=== PATIENT | male | born 1975 | race Caucasian/White ===

== ENCOUNTER 2023-04-25 20:42 | Inpatient (IN) | payer BC, SELFPAY ==
[2023-04-25 20:49] VITALS: BP 159/100; PULSE 87; RESP 16; TEMP 36.6; O2SAT 98; BMI 32.8
--- NOTE | 2023-04-25 20:56 | ED.GENADULT ---
HPI - General Adult General Chief complaint: Unspecified Complaint, Adult Stated complaint: Potassium level low Time Seen by Provider: 04/25/23 20:52 History of Present Illness HPI narrative: Pt had annual physical today, found to have K 2.7, asymptomatic. 48-year-old man presenting to the emergency department with concern of low potassium. Was contacted following blood draw today at his annual physical notified of a potassium of 2.7. Creatinine also is 1.2 He feels fine otherwise. Has had hypokalemia in the past. Also is treated for hypertension and GERD and depression/anxiety. Not able to locate any magnesium level. I do review labs that he brings in with him. He is scrolling through his [facility] record. This hypokalemia is certainly not a new problem and up until a few? months ago was on 20 mEq b.i.d. which has been increased to 40 mEq b.i.d. of potassium. This increased may actually have been in June of this year with potassium of 2.8 and a creatinine of 1. Back further in April of 2022 potassium level was 3.4. Not clear that there any losses. He does indicate that has numerous bowel movements during a day. Related Data Home Medications Medication Instructions Recorded Confirmed amlodipine 10 mg tablet 10 mg PO DAILY 04/25/23 04/25/23 atorvastatin 20 mg tablet 20 mg PO DAILY 04/25/23 04/25/23 lisinopril 20 tab PO 04/25/23 mg-hydrochlorothiazide 25 mg tablet omeprazole 40 mg capsule,delayed 40 mg PO DAILY 04/25/23 04/25/23 release potassium chloride 20 mEq 40 meq PO BID 04/25/23 04/25/23 tablet,extended release(part/cryst) venlafaxine 150 mg 150 mg PO DAILY 04/25/23 04/25/23 capsule,extended release 24 hr Allergies Allergy/AdvReac Type Severity Reaction Status Date / Time No Known Drug Allergies Allergy Verified 04/25/23 20:52 Review of Systems Status of ROS: Reports: 6 or more systems reviewed and unremarkable except as noted in History and below [facility] Social History Smoking Status: Former smoker How often do you have a drink containing alcohol: 4 or more times a week How many standard drinks containing alcohol do you have on a typical day: 1 or 2 AUDIT-C Alcohol total score: 4 Non-prescribed substance use: other Non-prescribed substance use details: thc gummies Exam Narrative: Exam Narrative: Pleasant. NAD. Blood pressure elevated a little bit. Long hair. Carefully groomed. Breathing easily. Lungs appear to be clear. Heart in regular rate and rhythm. Abdomen is overweight soft. Extremities are well perfused without edema. Moving extremities without difficulty, fluidly. Const: Vital Signs, click to edit/add: Vital Signs - 24 hr 04/25/23 20:49 Temperature 97.8 F Pulse Rate [Left P ulse Oximeter] 87 Respiratory Rate 16 Blood Pressure [Ri ght Upper Arm] 159/100 H Pulse Oximetry 98 Documenting provider has reviewed patient's vital signs: yes Course Vital Signs Vital signs: Initial Vital Signs Temperature 97.8 F 04/25/23 20:49 Temperature Source Temporal Artery Scan 04/25/23 20:49 Pulse Rate 87 04/25/23 20:49 Respiratory Rate 16 04/25/23 20:49 Blood Pressure 159/100 H 04/25/23 20:49 Blood Pressure Mean 119 H 04/25/23 20:49 Blood Pressure Position Sitting 04/25/23 20:49 Pulse Oximetry 98 04/25/23 20:49 Vital Signs Temperature 97.8 F 04/25/23 20:49 Pulse Rate 87 04/25/23 20:49 Respiratory Rate 16 04/25/23 20:49 Blood Pressure 159/100 H 04/25/23 20:49 Pulse Oximetry 98 04/25/23 20:49 Temperature 97.8 F 04/25/23 20:49 Pulse Rate 87 04/25/23 20:49 Respiratory Rate 16 04/25/23 20:49 Blood Pressure 159/100 H 04/25/23 20:49 Pulse Oximetry 98 04/25/23 20:49 Medical Decision Making MDM Narrative Medical decision making narrative: Will recheck labs. This might be medication related. Further is not on a potassium-sparing diuretic. Opted to check an EKG though looking for any changes to direct further treatment. EKG is noted below the so some flattening of the T-waves; I do not have prior EKG for comparison. But this prompts placement of IV. Will be giving IV potassium as well as oral 50 mEq. I would suspect that magnesium is not going to be elevated and probably lower low normal and so will begin supplementation of that as well IV slowly in the interest of time. Also receiving 500 mL of normal saline IV. Labs returned with a potassium of 2.2 actually lower than measured earlier today and magnesium 1.6. I have contacted our hospitalist to consider options including potential outpatient plan. At this time recommendation is for admission for continued potassium replacement and further evaluation. Will complete basic metabolic panel as well. Lab Data Lab results reviewed: Yes I reviewed the patient's lab results Labs: Lab Results 04/25/23 04/25/23 Range/Units 21:23 22:09 Potassium 2.2 L* (3.6-5.1) mmol/L Magnesium 1.6 (1.5-2.6) mg/dL Lab Acknowledgement Test Added ECG Data Attestation: I personally reviewed and interpreted this ECG as follows: (Normal sinus rhythm at rate of 74. Rather flattened T-waves.) Discharge Plan Discharge Clinical Impression: Acute electrocardiogram changes, Hypokalemia Patient Disposition: Admitted As Observation Condition: Stable
[2023-04-25] MEDS: POTASSIUM CHLORIDE 10 MEQ/100 ML PIGGYBACK 100 MEQ IVPB (21:29)
[2023-04-25] MEDS: 0.9 % SODIUM CHLORIDE 500 ML 500 ML IV (21:29)
[2023-04-25] MEDS: POTASSIUM BICARB 25 MEQ EFFERVESCENT TAB 50 MEQ PO (21:48)
[2023-04-25 21:56] LABS: Magnesium* 1.6 mg/dL (1.5-2.6)
[2023-04-25 22:07] LABS: Potassium* 2.2 mmol/L (3.6-5.1)
[2023-04-25 22:21] LABS: Chloride* 94 mmol/L (96-114); Sodium* 138 mmol/L (135-149)
[2023-04-25 22:24] LABS: Anion Gap 16 mEq/L (7-15); Blood Urea Nitrogen* 16 mg/dL (5-24); Carbon Dioxide* 28 mmol/L (20-32); Est. Creatinine Clearance* 98.08; Estimated Glomerular Filt Rate 92 ml/min
[2023-04-25 22:25] VITALS: BP 160/102; PULSE 72; RESP 16; O2SAT 96
[2023-04-25 22:25] LABS: Calcium* 9.2 mg/dL (8.4-10.6); Glucose* 105 mg/dL (60-115)
[2023-04-25 22:40] LABS: Appearance Urine Clear (Clear); Bilirubin Urine Negative (Negative); Blood Urine Negative (Negative); Color Urine Yellow (Yellow); Glucose Urine Negative (Negative); Ketones Urine Negative (Negative); Leukocyte Esterase Urine Negative (Negative); Nitrite Urine Negative (Negative); Protein Urine 1+ (Negative); Specific Gravity Urine 1.025 (1.000-1.030); Urobilinogen Urine 0.2 (0.2-1.0); pH Urine 6.5 (5.0-8.5)
[2023-04-25 23:00] VITALS: PULSE 98; RESP 18
[2023-04-25 23:01] LABS: RBC Urine 0-2 (0-2); Squamous Epithelial Cell Urine Few (None-Few); WBC Urine 0-2 (0-5)
--- NOTE | 2023-04-25 23:05 | P.IMHP_ITS ---
Hospitalist- H&P: HPI History of Present Illness Date Seen: 04/25/23 Chief complaint: Potassium level low Narrative: Manolo Perkins is a 48 year old male who presented to the emergency department at the behest of his PCP's office, after having a potassium of 2.7 on routine lab draw today. He was in for his annual physical and otherwise feeling fine. No recent travel, no recent illness, no GI distress, no issues. He has not had any chest pain or palpitations. He has not had any muscle twitching or cramping. ER Course and Findings: - potassium 2.2, given IV and oral replacement - magnesium 1.6, given IV replacement - mild flattening of T-waves on EKG Matthew has a history of hypokalemia on chart review (2.8-3.4, noted since 2019 in [facility]), has been on supplemental potassium for years. He has also been on lisinopril-hydrochlorothiazide for years. Medical history updated below. PCP is Dr. Bright at the [facility]. Review of Systems Status of ROS: Reports: 10 or more systems reviewed and unremarkable except as noted in History and below [facility] Medical History (Updated 04/25/23 @ 23:47 by Xochitl Olguin MD) RONNIE on CPAP ?G47.33 - Obstructive sleep apnea (adult) (pediatric) (ICD-10) Diverticulitis ?K57.92 - Diverticulitis of intestine, part unspecified, without perforation or abscess without bleeding (ICD-10) GERD (gastroesophageal reflux disease) ?K21.9 - Gastro-esophageal reflux disease without esophagitis (ICD-10) Essential hypertension ?I10 - Essential (primary) hypertension (ICD-10) Hyperlipidemia ?E78.5 - Hyperlipidemia, unspecified (ICD-10) Surgical History (Updated 04/25/23 @ 23:25 by Xochitl Olguin MD) Hx of colonoscopy ?Z98.890 - Other specified postprocedural states (ICD-10) H/O wisdom tooth extraction ?K08.409 - Partial loss of teeth, unspecified cause, unspecified class (ICD- 10) Social History Smoking Status: Former smoker How often do you have a drink containing alcohol: 4 or more times a week How many standard drinks containing alcohol do you have on a typical day: 1 or 2 AUDIT-C Alcohol total score: 4 Non-prescribed substance use: other Non-prescribed substance use details: thc gummies Meds Home Medications and Allergies Home Medications Medication Instructions Recorded Confirmed Type amlodipine 10 mg tablet 10 mg PO DAILY 04/25/23 04/25/23 History atorvastatin 20 mg tablet 20 mg PO DAILY 04/25/23 04/25/23 History lisinopril 20 1 tab PO DAILY 04/25/23 04/25/23 History mg-hydrochlorothiazide 25 mg tablet omeprazole 40 mg capsule,delayed 40 mg PO DAILY 04/25/23 04/25/23 History release potassium chloride 20 mEq 40 meq PO BID 04/25/23 04/25/23 History tablet,extended release(part/cryst) venlafaxine 150 mg 150 mg PO DAILY 04/25/23 04/25/23 History capsule,extended release 24 hr Allergies Allergy/AdvReac Type Severity Reaction Status Date / Time No Known Drug Allergies Allergy Verified 04/25/23 20:52 Exam Narrative: Exam Narrative: GEN: Alert and oriented, nontoxic in appearance and answering questions appropriately HEENT: EOMIs bilaterally, no scleral icterus CV: RRR, No concerning murmurs R: LCTA bilaterally without concerning wheezing, air movement adequate Ext: wwp, no concerning edema Skin: No concerning skin lesions or rashes on exposed skin Neuro: No focal deficits, no resting tremor Psych: Appropriate Const: Vital Signs, click to edit/add: Vital Signs - 24 hr 04/25/23 20:49 04/25/23 22:25 Temperature 97.8 F Pulse Rate [Left P ulse Oximeter] 87 72 Respiratory Rate 16 16 Blood Pressure [Ri ght Upper Arm] 159/100 H 160/102 H Pulse Oximetry 98 96 Oxygen Delivery Me thod Room Air Hospitalist - H&P: Result Labs Labs: BMP 04/25/23 21:23 Sodium 138 Potassium 2.2 L* Chloride 94 L Carbon Dioxide 28 BUN 16 Creatinine 1.0 Glucose 105 Calcium 9.2 Urine 04/25/23 Range/Units 22:27 Urine Color Yellow (Yellow) Urine Appearance Clear (Clear) Urine pH 6.5 (5.0-8.5) Ur Specific [place] 1.025 (1.000-1.030) Urine Protein 1+ A (Negative) Urine Glucose (UA) Negative (Negative) Assessment and Plan Assessment and plan (1) Hypokalemia: Problem comment: - given K of 2.2 on 04/25, will admit for telemetry monitoring and replacement - stop hydrochlorothiazide - recheck potassium in the morning - anticipate discharge home tomorrow with close PCP follow-up - consider outpatient workup for primary aldosteronism if hypokalemia persists after medication changes Status: Acute (2) Acute electrocardiogram changes: Problem comment: - mild T-wave flattening - asymptomatic, follow on telemetry - anticipate resolution with potassium replacement Status: Acute (3) Essential hypertension: Problem comment: - continue home dose of Amlodipine - stop HCTZ 04/25, increase Lisinopril from 20--->40mg Status: Acute Plan - per above - SCDs and ambulation for prophylaxis - Full code - updated at bedside, questions answered
[2023-04-25 23:22] VITALS: BP 161/101; PULSE 77; RESP 18; TEMP 36.6; O2SAT 98; BMI 33.9
[2023-04-26] VITALS (7 sets, daily range): BP systolic 137–160; BP diastolic 85–109; PULSE 74–93; RESP 16–18; TEMP 36.3–36.8; O2SAT 94–98
[2023-04-26] MEDS: 0.9 % SODIUM CHLORIDE 250 ml IV (00:28)
[2023-04-26] MEDS: POTASSIUM CHLORIDE 10 MEQ/100 ML PIGGYBACK 100 MEQ IVPB ×10 (00:29→20:37)
[2023-04-26] MEDS: POTASSIUM BICARB 25 MEQ EFFERVESCENT TAB 50 MEQ PO ×3 (00:32→20:38)
--- NOTE | 2023-04-26 04:45 | PC.NURSE ---
Patient arrived at 2300 from ER accompanied by his . Pleasant, alert and oriented. Independent with cares, ambulation and toileting. BP?s elevated. Denied any symptoms or pain.?
[2023-04-26 06:56] LABS: Chloride* 91 mmol/L (96-114); Sodium* 139 mmol/L (135-149)
[2023-04-26 06:59] LABS: Anion Gap 15 mEq/L (7-15); Blood Urea Nitrogen* 13 mg/dL (5-24); Carbon Dioxide* 33 mmol/L (20-32); Creatinine* 0.9 mg/dL (0.5-1.5); Est. Creatinine Clearance* 108.98; Estimated Glomerular Filt Rate 105 ml/min
[2023-04-26 07:00] LABS: Calcium* 8.7 mg/dL (8.4-10.6); Glucose* 104 mg/dL (60-115); Magnesium* 1.8 mg/dL (1.5-2.6)
[2023-04-26 07:10] LABS: Potassium* 2.4 mmol/L (3.6-5.1)
[2023-04-26 07:35] LABS: Phosphorus* 3.7 mg/dL (2.5-4.5)
[2023-04-26] MEDS: lisinopriL 20 MG TABLET 40 MG PO (08:52)
[2023-04-26] MEDS: VENLAFAXINE ER 75 MG CAPSULE 150 MG PO (08:52)
[2023-04-26] MEDS: AMLODIPINE 10 MG TABLET PO (08:52)
[2023-04-26] MEDS: OMEPRAZOLE 20 MG CAPSULE DR 40 MG PO (08:52)
[2023-04-26] MEDS: SODIUM CHLORIDE 0.9 % (FLUSH) 10 ML SYRINGE 5 ML IVF ×2 (08:54→20:38)
--- NOTE | 2023-04-26 10:09 | NUTR.NU ---
RDN with MD consult for hypokalemia. Patient admitted to hospital with low potassium level. RDN visited with patient and (Carmen, also designated caregiver) whom agreed to diet education. Diet education provided on foods with high-potassium content. RDN reviewed foods to include more in diet. Patient reports he does not include fruits and vegetables in diet daily. He claims he is a meat-atarian. Patient does like to eat potatoes, bananas, and leafy greens. He plans on including these in his diet more often, RDN encouraged him to do so daily. RDN's contact information was provided and patient/ was encouraged to call with questions.
[2023-04-26 14:01] LABS: Potassium* 2.7 mmol/L (3.6-5.1)
--- NOTE | 2023-04-26 14:11 | PC.NURSE ---
Patient A&O x4 and cooperative with cares. Independent in his room. AM K+ critical at 2.4 > IV K+ infusing throughout the day in 20g left AC 10 mEq x6 doses > 1400 K+ recheck remains critical at 2.7. VSS and afebrile. TELE reads NSR rate 70s-90s. Continues to be asymptomatic of hypokalemia and reports no pain. present at bedside this afternoon & brought food in for him. Reports having a BM this morning no difficulties.
--- NOTE | 2023-04-26 14:21 | P.IMPN_ITS ---
Progress Note: A&P Assessment and plan (1) Hypokalemia: Problem details: - given K of 2.2 on 04/25, will admit for telemetry monitoring and replacement - stop hydrochlorothiazide - 04/26: recheck of potassium is 2.4 in the morning, then 2.7 after 4 bumps 10 mEq IV. Will change supplement to 50 mEq orally t.i.d., recheck potassium at 5:00 p.m. and 2000 pm - consider outpatient workup for primary aldosteronism if hypokalemia persists after medication changes - urine potassium and renin ordered Status: Acute (2) Essential hypertension: Problem details: - continue home dose of Amlodipine - stop HCTZ 04/25, increase Lisinopril from 20--->40mg Status: Acute (3) Acute electrocardiogram changes: Problem details: - mild T-wave flattening - asymptomatic, follow on telemetry - anticipate resolution with potassium replacement Status: Acute Time Spent With Patient Total time spent: Total time spent caring for the patient today was 45 minutes. This includes time spent for the visit reviewing the chart, time spent during the visit, time spent after the visit and documentation and planning in coordination of care. Subjective Date Seen: 04/26/23 Interval history: Patient reports feeling pretty good this morning. Tells me he has not been symptomatic at all with his chronic low potassium. Tolerating orals. No recent fevers. No recent nausea vomiting diarrhea. Exam Narrative: Exam Narrative: PHYSICAL EXAM General: Pleasant, conversant, NAD HEENT: Normocephalic, atraumatic, sclera white, EOMI, oral mucosa moist Cardiovascular: RRR, S1S2. No pitting edema Pulmonary: CTA bilaterally without rhonchi, rales, expiratory wheezes. No dyspnea Neurological: Alert, answering questions appropriately, cranial nerves intact, no focal findings Extremities: No gross joint deformity or swelling. AROMI. Neurovascularly intact Skin: Warm, dry. Const: Vital Signs, click to edit/add: Vital Signs - 24 hr 04/25/23 20:49 04/25/23 22:25 04/25/23 23:00 Temperature 97.8 F Pulse Rate Pulse Rate [Left P ulse Oximeter] 87 72 Pulse Rate [Pulse Oximeter] 98 Respiratory Rate 16 16 18 Blood Pressure [Ri ght Arm] Blood Pressure [Ri ght Upper Arm] 159/100 H 160/102 H Pulse Oximetry 98 96 Oxygen Delivery Me thod Room Air 04/25/23 23:22 04/26/23 03:00 04/26/23 07:00 Temperature 97.8 F 97.6 F Pulse Rate 77 Pulse Rate [Left P ulse Oximeter] Pulse Rate [Pulse Oximeter] 77 74 Respiratory Rate 18 18 Blood Pressure [Ri ght Arm] 161/101 H 144/93 H Blood Pressure [Ri ght Upper Arm] Pulse Oximetry 98 96 Oxygen Delivery Me thod Room Air Room Air 04/26/23 07:00 04/26/23 07:00 04/26/23 11:00 Temperature 98 F 98.3 F Pulse Rate Pulse Rate [Left P ulse Oximeter] Pulse Rate [Pulse Oximeter] 93 85 Respiratory Rate 16 16 16 Blood Pressure [Ri ght Arm] 160/109 H 137/99 H Blood Pressure [Ri ght Upper Arm] Pulse Oximetry 95 95 95 Oxygen Delivery Me thod Room Air Room Air Room Air Labs Labs: Laboratory Results - last 24 hr 04/25/23 04/25/23 04/25/23 21:23 22:09 22:27 Sodium 138 Potassium 2.2 L* Chloride 94 L Carbon Dioxide 28 Anion Gap 16 H BUN 16 Creatinine 1.0 Estimated Creat Clear 98.08 Estimated GFR 92 Glucose 105 Calcium 9.2 Phosphorus Magnesium 1.6 Urine Color Yellow Urine Appearance Clear Urine pH 6.5 Ur Specific [place] 1.025 Urine Protein 1+ A Urine Glucose (UA) Negative Urine Ketones Negative Urine Blood Negative Urine Nitrite Negative Urine Bilirubin Negative Urine Urobilinogen 0.2 Ur Leukocyte Esterase Negative Urine RBC 0-2 Urine WBC 0-2 Ur Squamous Epith Cells Few Urine Bacteria None Lab Acknowledgement Test Added 04/26/23 04/26/23 04/26/23 06:03 07:24 13:26 Sodium 139 Potassium 2.4 L* 2.7 L* Chloride 91 L Carbon Dioxide 33 H Anion Gap 15 BUN 13 Creatinine 0.9 Estimated Creat Clear 108.98 Estimated GFR 105 Glucose 104 Calcium 8.7 Phosphorus 3.7 Magnesium 1.8 Urine Color Urine Appearance Urine pH Ur Specific [place] Urine Protein Urine Glucose (UA) Urine Ketones Urine Blood Urine Nitrite Urine Bilirubin Urine Urobilinogen Ur Leukocyte Esterase Urine RBC Urine WBC Ur Squamous Epith Cells Urine Bacteria Lab Acknowledgement Test Added
[2023-04-26 17:26] LABS: Potassium* 2.7 mmol/L (3.6-5.1)
[2023-04-26] MEDS: ATORVASTATIN 10 MG TABLET 20 MG PO (20:38)
[2023-04-26 22:17] LABS: Potassium* 3.3 mmol/L (3.6-5.1)
--- NOTE | 2023-04-26 22:32 | PC.NURSE ---
End of shift [id number]: Alert and oriented x3. Denies any pain, shortness of breath or chest pain. Independent with ambulation and personal cares. Potassium draw results 2.7, new orders for IV potassium 10mEq x3 then redraw lab at 2200. Patient tolerated medications well, denied any pain or burning at IV site. Follow up potassium at 2200 was 3.3, Dr. Olguin aware, no new orders at this time. Patient's brought in CPAP machine, machine checked by Andrea DANIELS. No concerns at this time.
[2023-04-27 04:15] VITALS: BP 145/102; PULSE 84; RESP 16; TEMP 36.7; O2SAT 95
--- NOTE | 2023-04-27 06:49 | PC.NURSE ---
End of shift nursing note, [id number]: Uneventful shift, pt alert and oriented, pleasant and cooperative. Vitals stable, aside from continued HTN, BP 140s/low 100s, pt asymptomatic, denies headache. Pt up ad aga in room, voided couple times during night. CPAP on during sleep. Denies pain. Urine sample collected and brought to lab for ordered urine K+. Pt uses call light appropriately, &has within reach.
[2023-04-27 07:00] VITALS: BP 142/98; PULSE 65; PULSE 75; RESP 16; RESP 18; TEMP 36.8; O2SAT 94
[2023-04-27 09:00] LABS: Chloride* 95 mmol/L (96-114); Sodium* 139 mmol/L (135-149)
[2023-04-27 09:03] LABS: Anion Gap 14 mEq/L (7-15); Blood Urea Nitrogen* 11 mg/dL (5-24); Carbon Dioxide* 30 mmol/L (20-32); Creatinine* 0.9 mg/dL (0.5-1.5); Est. Creatinine Clearance* 108.98; Estimated Glomerular Filt Rate 105 ml/min; Glucose* 103 mg/dL (60-115)
[2023-04-27] MEDS: lisinopriL 20 MG TABLET 40 MG PO (09:37)
[2023-04-27] MEDS: OMEPRAZOLE 20 MG CAPSULE DR 40 MG PO (09:37)
[2023-04-27] MEDS: AMLODIPINE 10 MG TABLET PO (09:37)
[2023-04-27] MEDS: SODIUM CHLORIDE 0.9 % (FLUSH) 10 ML SYRINGE 5 ML IVF (09:38)
[2023-04-27] MEDS: SPIRONOLACTONE 25 MG TABLET PO (09:38)
[2023-04-27] MEDS: POTASSIUM BICARB 25 MEQ EFFERVESCENT TAB 50 MEQ PO (09:38)
[2023-04-27] MEDS: VENLAFAXINE ER 75 MG CAPSULE 150 MG PO (09:39)
[2023-04-27 11:00] VITALS: BP 140/94; PULSE 80; RESP 18; TEMP 36.6; O2SAT 96
--- NOTE | 2023-04-27 11:13 | PM.DS1 ---
DS: Providers Provider Date Seen: 04/27/23 Date of admission: 04/26/23 08:51 Primary care physician: Ramón Mishra Admitting Clinician: Xochitl Olguin MD Consults: 04/25/23 23:38 Consult to Nutrition [CONS] Routine Comment: Reason for consult:: Miscellaneous Comment: hypokalemia Attending Physician on discharge: LUIS ALBERTO Oakley, [facility] Date of Discharge: 04/27/23 DS: Diagnosis Discharge Diagnosis (1) Hypokalemia: Status: Acute Problem details: - given K of 2.2 on 04/25, will admit for telemetry monitoring and replacement - stop hydrochlorothiazide - 04/26: recheck of potassium is 2.4 in the morning, then 2.7 after 4 bumps 10 mEq IV. Will change supplement to 50 mEq orally t.i.d., recheck potassium at 5:00 p.m. and 2000 pm - consider outpatient workup for primary aldosteronism if hypokalemia persists after medication changes - urine potassium and renin ordered - pending at time of discharge. May need to follow-up with PCP for 24 hour urine potassium. - evening of 04/26, potassium improved to 3.3. On day of discharge, potassium 3.0. Increased patient's usual home dose of KCl 20 mEq b.i.d. to t.i.d. to see if this would aid with retain potassium. In addition, stopped hydrochlorothiazide and omeprazole. Started spironolactone as concern for primary aldosteronism. Will need close follow-up with PCP in 3-5 days with repeat potassium level and further workup. (2) Essential hypertension: Status: Acute Problem details: - continue home dose of Amlodipine - stop HCTZ 04/25, increase Lisinopril from 20--->40mg. Discharged on this dose of lisinopril. (3) Acute electrocardiogram changes: Status: Acute Problem details: - mild T-wave flattening - asymptomatic, follow on telemetry - anticipate resolution with potassium replacement (4) GERD (gastroesophageal reflux disease): Status: Acute Problem details: - post marketing studies do show risk of hypokalemia with omeprazole so, while possibly minor, this was stopped on day of discharge. Started on famotidine b.i.d.. Further outpatient management with PCP. DS: Summary Hospital Course Hospital Course: [age] year old male past medical history significant for hypokalemia, hypertension, GERD was admitted to the medical floor for further management acute on chronic hypokalemia. Course of care and details as noted above. Remainder of chronic medical comorbidities were monitored and managed with home medications. Patient will need close follow-up with PCP as he has asymptomatic hypokalemia. Recommended follow-up with repeat potassium level in 3-5 days. Recommend ongoing outpatient workup for primary aldosteronism. A renin test was obtained and is pending on day of discharge. A 24 hour urine potassium test would also be useful. On discharge, the following medication changes have been made: Stop your lisinopril/HCTZ. Instead, you have been given a prescription for lisinopril to be taken once daily. Change your potassium chloride to 20 mg (1 tablet) 3 times daily. Previously prescribed 20 mg twice daily. Continue to take spironolactone every morning. Stop taking omeprazole. Post marketing studies do report hypokalemia which may be under studied. For the time being, it makes sense to stop this potential medication adverse reaction. Instead, start taking famotidine twice daily. Follow-up with your PCP for further medication management of your GERD. Status at Discharge Overall status at discharge: patient is back to baseline Time Spent with Patient Time attestation: Total time spent providing and/or coordinating discharge services: Time spent: Greater than 30 minutes Exam Narrative: Exam Narrative: PHYSICAL EXAM General: Pleasant, conversant, NAD Cardiovascular: RRR Pulmonary: No dyspnea Neurological: Alert, answering questions appropriately, cranial nerves intact, no focal findings Skin: Warm, dry. Const: Vital Signs, click to edit/add: Vital Signs - 24 hr 04/26/23 15:00 04/26/23 15:00 04/26/23 15:00 Temperature 97.4 F L Pulse Rate 87 Pulse Rate [Pulse Oximeter] 83 Respiratory Rate 18 Blood Pressure [Ri ght Arm] 143/85 H Pulse Oximetry 97 97 Oxygen Delivery Me thod Room Air Room Air 04/26/23 19:00 04/26/23 23:00 04/26/23 23:00 Temperature 98.3 F Pulse Rate 77 Pulse Rate [Pulse Oximeter] 86 77 Respiratory Rate 17 16 Blood Pressure [Ri ght Arm] 140/96 H Pulse Oximetry 98 Oxygen Delivery Me thod Room Air 04/26/23 23:00 04/26/23 23:30 04/27/23 04:15 Temperature 98.2 F 98.0 F Pulse Rate Pulse Rate [Pulse Oximeter] 74 84 Respiratory Rate 16 16 16 Blood Pressure [Ri ght Arm] 145/107 H 145/102 H Pulse Oximetry 94 94 95 Oxygen Delivery Me thod Room Air Room Air Room Air 04/27/23 07:00 04/27/23 07:00 04/27/23 07:00 Temperature Pulse Rate 65 Pulse Rate [Pulse Oximeter] 75 Respiratory Rate 16 18 Blood Pressure [Ri ght Arm] Pulse Oximetry 94 Oxygen Delivery Me thod Room Air 04/27/23 07:00 Temperature 98.2 F Pulse Rate Pulse Rate [Pulse Oximeter] 75 Respiratory Rate 18 Blood Pressure [Ri ght Arm] 142/98 H Pulse Oximetry 94 Oxygen Delivery Me thod Room Air DS: Data Data Completed and Pending Pending studies at discharge: Renin Labs on day of discharge: Labs from last 24 hours 04/27/23 04/26/23 04/26/23 08:08 21:59 17:00 Sodium 139 Potassium 3.0 L 3.3 L 2.7 L* Chloride 95 L Carbon Dioxide 30 Anion Gap 14 BUN 11 Creatinine 0.9 Estimated Creat Clear 108.98 Estimated GFR 105 Glucose 103 Calcium 9.0 Renin Baseline 04/26/23 04/26/23 14:23 13:26 Sodium Potassium 2.7 L* Chloride Carbon Dioxide Anion Gap BUN Creatinine Estimated Creat Clear Estimated GFR Glucose Calcium Renin Baseline Pending Discharge Plan Discharge Disposition: Home, Self-Care Date of Admission: 04/26/23 08:51 Attending Provider on Discharge: Jessica Avendaño Primary Care Provider: Provider,Not a Local Condition: Stable Anticipated Discharge Date/Time: 04/27/23 11:01 Discharge Medications: New lisinopril 20 mg Tablet 40 mg PO DAILY Qty: 30 0RF spironolactone 25 mg Tablet 25 mg PO DAILY Qty: 30 0RF famotidine 20 mg tablet 20 mg PO BID Qty: 60 2RF potassium chloride 20 mEq tablet extended release 20 meq PO TID Qty: 90 0RF Continued atorvastatin 20 mg tablet 20 mg PO DAILY amlodipine 10 mg tablet 10 mg PO DAILY venlafaxine 150 mg capsule,extended release 24hr 150 mg PO DAILY multivitamin [Daily Multi-Vitamin] Tablet 1 tab PO DAILY Discontinued omeprazole 40 mg capsule,delayed release(DR/EC) 40 mg PO DAILY potassium chloride 20 mEq tablet,ER particles/crystals 20 meq PO BID lisinopril-hydrochlorothiazide 20-25 mg tablet 1 tab PO DAILY Discharge Orders: Discharge Order (Routine); Ordered 04/27/23 Ordered By: Jessica Avendaño Patient Education: Spironolactone (By mouth), Lisinopril (By mouth), Famotidine (By mouth), Potassium Chloride (By mouth), Hypokalemia (DC), Hypokalemia (GEN) Additional Instructions: Stop your lisinopril/HCTZ. Instead, you have been given a prescription for lisinopril to be taken once daily. Change your potassium chloride to 20 mg (1 tablet) 3 times daily. Continue to take spironolactone every morning. YOU WILL NEED TO SEE YOUR PCP AND HAVE YOUR POTASSIUM LEVEL RECHECKED in 3-5 days. Stop taking omeprazole. Post marketing studies do report hypokalemia which may be under studied. For the time being, it makes sense to stop this potential medication adverse reaction. Instead, start taking famotidine twice daily. Follow-up with your PCP for further medication management of your GERD. We recommend your PCP do a further workup for primary aldosteronism. A renin test was obtained prior to your discharge and is pending. A 24 hour urine potassium test would also be useful. Activity Level: No Restrictions Discharge Diet: Regular Follow Up Appointments: [facility] [Other] - 04/30/23 11:40 am (Follow up with potassium level) Provider,Not a Local [Primary Care Provider] - 04/30/23 11:40 am (F/u with Tameka Mishra in 3-5 days for post hospital follow up and recheck potassium) Forms: [employer] Info Instructions
--- NOTE | 2023-04-27 12:55 | PC.NURSE ---
Nursing Care Hours: [id number] Pt this shift alert and oriented, calm and cooperaitve. No c/o pain, N/V. Independent in room. NSR on tele strip. IV patent, dc'd for discharge. BM x1, formed per pt.
[2023-04-29 07:26] LABS: Renin Activity 0.7 ng/mL/hr
== END 2023-04-27 12:12 | disposition home or self-care (01) | DRG 425 ==
LOC: ED 22:18 → MEDSURG 22:58
PROVIDERS: Physician Assistant; Admitting Provider Family Medicine; Emergency Provider Family Medicine; Visit Provider Family Medicine
DX: E87.6 Hypokalemia (principal); I10 Essential (primary) hypertension; K21.9 Gastro-esophageal reflux disease without esophagitis; R94.31 Abnormal electrocardiogram [ECG] [EKG]; F41.8 Other specified anxiety disorders; G47.33 Obstructive sleep apnea (adult) (pediatric); E78.5 Hyperlipidemia, unspecified; Z87.891 Personal history of nicotine dependence
CPT/HCPCS: 36415; 80048; 81001; 82088; 83735; 84100; 84132; 84133; 84244; 93005; 99284; G0378; A9270; J3475; J3480; J7050; J7120